=== PATIENT | female | born 1930 | race Caucasian/White ===

== ENCOUNTER 2017-09-06 22:36 | Emergency (ER) | payer MEDICARE, BC ==
[~2017-09-06] VITALS: Ht 149.9 cm; Wt 58.1 kg
[~2017-09-06 22:36] MED LIST: ALBU90OI6 INH; ASPI325 PO; ASPI81EC PO; AZATHIOPRINE; BENICAR; BUME2 PO; BUPR150ER PO; CALCAVITD PO; CARV25 PO; CLON.1 PO; COREG; CYCL100; DIAZIDE; DIPH25; DIPH50 PO; DOCU100 PO; DOXY100 PO; ESTR.1TPB; ESTR1; FAMO20 PO; FISH1000 PO; FLUT.05NI; FURO40 PO; HYDACE5 PO; HYDHCL10 PO; HYDHCL25; HYDPAM25; LEVFLO500 PO; LISHYD2012; LISHYD2012 PO; LISI20 PO; MAGNESIA; MAGOXI400 PO; MECL12.5 PO; MECL25 PO; METPRE4DP PO; NITR100CA PO; NORVASC; NYST100P TOP; POTCHL20ER PO; PRED10 PO; PRED20 PO; PREDNISONE 10 MG TAB; PROM25 PO; RISE35; RXPRED10; SIMV10 PO; TIOT18 IH; TRAM50 PO; [UNRECOGNIZED DRUG - OTHER] PO
[2017-09-06 23:29] LABS: BASOPHILS ABSOLUTE AUTO 0.02 K/mm3 (0.00-0.23); BASOPHILS PERCENT AUTO 0 % (0-2); EOSINOPHILS ABSOLUTE AUTO 0.26 K/mm3 (0.00-0.68); EOSINOPHILS PERCENT AUTO 3 % (0-6); Hematocrit 40.2 % (33.0-51.0); Hemoglobin 13.7 g/dL (11.5-16.0); IMMATURE GRAN ABSOLUTE AUTO 0.03 K/mm3 (0.00-0.10); IMMATURE GRAN PERCENT AUTO 0 % (0-1); LYMPHOCYTES ABSOLUTE AUTO 0.76 K/mm3 (0.84-5.20); LYMPHOCYTES PERCENT AUTO 10 % (21-46); MONOCYTES ABSOLUTE AUTO 0.82 K/mm3 (0.16-1.47); MONOCYTES PERCENT AUTO 10 % (4-13); Mean Corpuscular HGB 31.3 pg (26.0-34.0); Mean Corpuscular HGB Conc 34.1 g/dL (31.5-36.5); Mean Corpuscular Volume 92 fL (80-100); Mean Platelet Volume 9.3 fL (9.1-12.4); NEUTROPHILS ABSOLUTE AUTO 6.05 K/mm3 (1.96-9.15); NEUTROPHILS PERCENT AUTO 76 % (41-73); Platelet Count 216 K/mm3 (150-400); RDW Standard Deviation 47.8 fL (35.1-46.3); Red Blood Cell Count 4.38 M/mm3 (3.80-5.20); White Blood Cell Count 7.94 K/mm3 (4.00-11.30)
[2017-09-06 23:50] LABS: Alanine Aminotransfer (ALT/SGP 38 U/L (12-78); Albumin, Blood 3.9 g/dL (3.4-5.0); Albumin/Globulin Ratio 1.1 (0.8-1.8); Alk Phos 95 U/L (50-136); Anion Gap 7 mmol/L (6-16); Aspartate Aminotrans (AST/SGOT 31 U/L (12-37); Bilirubin, Total 0.5 mg/dL (0.1-1.0); Blood Urea Nitrogen 31 mg/dL (8-24); Bun/Creatinine Ratio 25.4 (12.0-20.0); CO2, Blood 26 mmol/L (21-32); Calcium, Blood 9.3 mg/dL (8.5-10.1); Chloride, Blood 101 mmol/L (98-108); Creatinine, Blood 1.22 mg/dL (0.40-1.00); Globulin, Blood 3.5 g/dL (2.2-4.0); Glomerular Filtration Rate 44 (60-); Glucose, Blood 108 mg/dL (70-99); Potassium, Blood 4.4 mmol/L (3.5-5.5); Sodium, Blood 134 mmol/L (136-145); Total Protein, Blood 7.4 g/dL (6.4-8.2); Troponin I <0.015 ng/mL (0.000-0.040)
== END 2017-09-07 02:49 | disposition home or self-care (01) ==
LOC: ER 22:36
PROVIDERS: Emergency Medicine
DX: K59.00 Constipation, unspecified (principal); Z88.8 Allergy status to other drugs, medicaments and biological substances; Z88.1 Allergy status to other antibiotic agents; Z91.013 Allergy to seafood; Z79.899 Other long term (current) drug therapy; Z79.52 Long term (current) use of systemic steroids; I10 Essential (primary) hypertension; J44.9 Chronic obstructive pulmonary disease, unspecified; Z87.891 Personal history of nicotine dependence
CPT/HCPCS: 36415; 51701; 74176; 80053; 83690; 84484; 85025; 93005; 93010; 96374; 96375; 99284; J1170; J2405

== ENCOUNTER → 2017-12-22 | Outpatient (CLI) | payer MEDICARE, BC | END | disposition home or self-care (01) | LOC: LAB SHORT 15:18 → PLD 15:18 | DX: D48.5 Neoplasm of uncertain behavior of skin (principal) | CPT/HCPCS: 88305 ==

== ENCOUNTER 2018-07-16 12:25 | Emergency (ER) | payer MEDICARE ==
[~2018-07-16] VITALS: Ht 149.9 cm; Wt 55.8 kg
[2018-07-16 13:11] LABS: BASOPHILS ABSOLUTE AUTO 0.02 K/mm3 (0.00-0.23); BASOPHILS PERCENT AUTO 0 % (0-2); EOSINOPHILS ABSOLUTE AUTO 0.07 K/mm3 (0.00-0.68); EOSINOPHILS PERCENT AUTO 1 % (0-6); Hematocrit 40.2 % (33.0-51.0); Hemoglobin 13.7 g/dL (11.5-16.0); IMMATURE GRAN ABSOLUTE AUTO 0.06 K/mm3 (0.00-0.10); IMMATURE GRAN PERCENT AUTO 1 % (0-1); LYMPHOCYTES ABSOLUTE AUTO 0.71 K/mm3 (0.84-5.20); LYMPHOCYTES PERCENT AUTO 6 % (21-46); MONOCYTES ABSOLUTE AUTO 1.19 K/mm3 (0.16-1.47); MONOCYTES PERCENT AUTO 11 % (4-13); Mean Corpuscular HGB 31.6 pg (26.0-34.0); Mean Corpuscular HGB Conc 34.1 g/dL (31.5-36.5); Mean Corpuscular Volume 93 fL (80-100); Mean Platelet Volume 9.6 fL (9.1-12.4); NEUTROPHILS ABSOLUTE AUTO 9.22 K/mm3 (1.96-9.15); NEUTROPHILS PERCENT AUTO 82 % (41-73); Platelet Count 217 K/mm3 (150-400); RDW Coefficient Variation 13.9 % (11.7-14.2); RDW Standard Deviation 47.3 fL (35.1-46.3); Red Blood Cell Count 4.34 M/mm3 (3.80-5.20); White Blood Cell Count 11.27 K/mm3 (4.00-11.30)
[2018-07-16 13:29] LABS: Albumin, Blood 3.6 g/dL (3.4-5.0); Albumin/Globulin Ratio 1.2 (0.8-1.8); Bilirubin, Total 0.8 mg/dL (0.1-1.0); Bun/Creatinine Ratio 18.7 (12.0-20.0); Calcium, Blood 9.2 mg/dL (8.5-10.1); Creatinine, Blood 1.98 mg/dL (0.40-1.00); Globulin, Blood 2.9 g/dL (2.2-4.0); Potassium, Blood 4.4 mmol/L (3.5-5.5); Total Protein, Blood 6.5 g/dL (6.4-8.2)
[2018-07-16 15:05] LABS: Source, Urine Clean Catch
[2018-07-16 15:19] LABS: Bilirubin, Urine Neg (Neg); Blood, Urine 1+ (Neg); Glucose Qualitative, Urine Neg (Neg); Ketones, Urine Neg (Neg); Leukocyte Esterase, Urine 2+ (Neg); Nitrite, Urine Neg (Neg); Protein, Urine 3+ (Neg); Urobilinogen, Urine NORM (Normal)
[2018-07-16 15:24] LABS: Appearance, Urine Hazy (Clear); Color, Urine Yellow (P-Yellow)
[2018-07-16 15:25] LABS: Squamous Epithelial Cells Mod /hpf (Few)
[2018-07-16 15:26] LABS: White Blood Cells, Urine 50-100 /hpf (0-5)
[2018-07-16 15:27] LABS: Amorphous Light ({null, 0-Heavy}); Bacteria Few /hpf
== END 2018-07-16 16:43 | disposition home or self-care (01) ==
LOC: ER 12:25
PROVIDERS: Physician Assistant
DX: N39.0 Urinary tract infection, site not specified (principal); E87.1 Hypo-osmolality and hyponatremia; I10 Essential (primary) hypertension; J44.9 Chronic obstructive pulmonary disease, unspecified; Z87.891 Personal history of nicotine dependence; Z79.899 Other long term (current) drug therapy; Z79.52 Long term (current) use of systemic steroids
CPT/HCPCS: 36415; 80053; 81001; 85025; 87077; 87086; 87186; 93005; 93010; 96360; 99284-25; J7030; P9612

== ENCOUNTER 2019-08-21 18:33 | Observation (INO) | payer MEDICARE ==
[~2019-08-21] VITALS: Ht 149.9 cm; Wt 52.5 kg
[~2019-08-21 18:33] MED LIST changes: -CARV25 PO; -FURO40 PO; -SIMV10 PO
[2019-08-21 19:26] LABS: BASOPHILS ABSOLUTE AUTO 0.02 K/mm3 (0.00-0.23); BASOPHILS PERCENT AUTO 0 % (0-2); EOSINOPHILS ABSOLUTE AUTO 0.11 K/mm3 (0.00-0.68); EOSINOPHILS PERCENT AUTO 2 % (0-6); Hematocrit 39.7 % (33.0-51.0); Hemoglobin 13.6 g/dL (11.5-16.0); IMMATURE GRAN ABSOLUTE AUTO 0.03 K/mm3 (0.00-0.10); IMMATURE GRAN PERCENT AUTO 1 % (0-1); LYMPHOCYTES ABSOLUTE AUTO 1.16 K/mm3 (0.84-5.20); LYMPHOCYTES PERCENT AUTO 19 % (21-46); MONOCYTES ABSOLUTE AUTO 0.76 K/mm3 (0.16-1.47); MONOCYTES PERCENT AUTO 12 % (4-13); Mean Corpuscular HGB 32.5 pg (26.0-34.0); Mean Corpuscular HGB Conc 34.3 g/dL (31.5-36.5); Mean Corpuscular Volume 95 fL (80-100); Mean Platelet Volume 9.6 fL (9.1-12.4); NEUTROPHILS PERCENT AUTO 66 % (41-73); Platelet Count 210 K/mm3 (150-400); RDW Coefficient Variation 13.4 % (11.7-14.2); RDW Standard Deviation 47.1 fL (35.1-46.3); Red Blood Cell Count 4.19 M/mm3 (3.80-5.20); White Blood Cell Count 6.18 K/mm3 (4.00-11.30)
[2019-08-21 19:45] LABS: Source, Urine Clean Catch
[2019-08-21 19:46] LABS: Albumin, Blood 3.9 g/dL (3.4-5.0); Albumin/Globulin Ratio 1.3 (0.8-1.8); Bilirubin, Total 0.5 mg/dL (0.1-1.0); Bun/Creatinine Ratio 24.7 (12.0-20.0); Calcium, Blood 9.5 mg/dL (8.5-10.1); Creatinine, Blood 1.82 mg/dL (0.40-1.00); Potassium, Blood 4.4 mmol/L (3.5-5.5); Total Protein, Blood 6.9 g/dL (6.4-8.2); Troponin I 0.362 ng/mL (0.000-0.040)
[2019-08-21 20:07] LABS: Bilirubin, Urine Neg (Neg); Blood, Urine 1+ (Neg); Glucose Qualitative, Urine Neg (Neg); Ketones, Urine Neg (Neg); Leukocyte Esterase, Urine 3+ (Neg); Nitrite, Urine Neg (Neg); Protein, Urine 1+ (Neg); Specific Gravity, Urine 1.015 (1.003-1.022); Urobilinogen, Urine NORM (Normal)
[2019-08-21 20:18] LABS: Appearance, Urine Hazy (Clear); Color, Urine Yellow (P-Yellow)
[2019-08-21 20:19] LABS: Bacteria Many /hpf; Red Blood Cells, Urine 0-2 /hpf (0-2); Squamous Epithelial Cells Not Seen /hpf (Few); White Blood Cells, Urine TNTC /hpf (0-5)
[2019-08-21] MEDS ORDERED: CARV25 PO (20:34)
[2019-08-21] MEDS ORDERED: LISI20 PO (20:35)
[2019-08-21] MEDS ORDERED: SIMV40 PO (20:35)
[2019-08-21] MEDS ORDERED: TIOT18 INH (20:37)
[2019-08-21] MEDS ORDERED: FURO20 PO (20:37)
[2019-08-21] MEDS ORDERED: BUPROPION XL150 M1 PO (20:38)
[2019-08-21] MEDS ORDERED: TRAZ50 PO (20:42)
[2019-08-21] MEDS ORDERED: LINZESS145 MCG PO (20:44)
[2019-08-21] MEDS ORDERED: CLON.1 PO (21:17)
[2019-08-21] MEDS ORDERED: MAGNESIUM250 MG PO (21:20)
--- NOTE | 2019-08-22 02:40 | NUR ---
PCU ADMIT PT BROUGHT TO PCU RM 09 FROM ER BY [facility] @ APPROX 2310. PT A&O X4, ABLE TO STAND AND AMBULATE TO PCU BED FROM [facility] W/ CARMEN[facility]. PT REPORTS USING FWW AT HOME ([employer]). BP TRENDING DOWN FROM BP IN ER. MONITOR SHOWS SR, HR 60's. SPO2 > 92% ON RA. PT REPORTS CHRONIC CONSTIPATION, BUT STATES HAVING BM THIS AM (08/21/19). 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 MRSA CLEARING NOT INITIATED D/T IV ABX GIVEN IN ER.
--- NOTE | 2019-08-22 05:49 | NUR ---
SHIFT SUMMARY PT CONTINUES TO BE A&O X4. BP ELEVATED, OTHERWISE VSS. NO EVENTS OR CHANGES OVERNIGHT. NO SYNCOPAL EPISODES THIS SHIFT. PT DENIES LIGHTHEADEDNESS/DIZZINESS W/ GETTING UP. WILL CONTINUE TO MONITOR AND PROVIDE CARE UNTIL REPORT OFF TO DAY SHIFT RN.
--- NOTE | 2019-08-22 08:06 | NUR ---
AM NOTE... ASSUMED CARE OF PT APROX 0700. PT IS A&Ox4 AND WAS ADMITTED FOR SYNCOPE. PT DENIES ANY LIGHT HEADED/DIZZINESS AT THIS TIME. PT IS HYPERTENSIVE AT 213/111, PT MEDICATED WITH PRN HYDRALAZINE PER EMAR. PT DENIES CHEST PAIN/PRESSURE N/V OR SOB AT THIS TIME. PT IS IN NSR IN THE 60'S-80'S PER CUSTOMER SERVICE CASHIER. L/S CLEAR T/O PT IS ON RA, RR 14-18 EVEN AND UNLABORED. BT PRESENT AND HYPOACTIVE. ABD IS SOFT AND NONTENDER TO PALP. PT WAS VERY EMOTIONAL AND CRYING THIS MORNING WHEN THIS RN ENTERED THE ROOM. PT STATED "I AM JUST FEELING SORRY FOR MYSELF." THIS RN PROVIDED THERAPEUTIC LISTENING AND TOUCH. WILL CONTINUE TO MONITOR.
--- NOTE | 2019-08-22 15:30 | NUR ---
Echocardiogram completed.
--- NOTE | 2019-08-22 17:07 | NUR ---
SHIFT SUMMARY... NO ACUTE NEGATIVE CHANGES NOTED THIS SHIFT. PT HAS BEEN HYPERTENSIVE MOST OF THE SHIFT AND HAS BEEN MEDICATED PER EMAR. PT'S OTHER VS STABLE. PT HAS BEEN C/O OF GETTING THE "SHIVERS" PT HAS BEEN AFEBRILE ALL SHIFT. PT HAS BEEN UP TO THE CHAIR FOR MEALS AND WALKING TO THE BATHROOM TO VOID. PT HAS HAD FAMILY AND VISITORS OFF AND ON T/O THE DAY. PT HAS DENIED ANY CHEST PAIN/PRESSURE N/V OR SOB, PT HAS ALSO DENIED ANY LIGHTHEADED/DIZZINESS THIS SHIFT. PT HAS BEEN TEARFUL AND EMOTIONAL OFF AND ON THIS SHIFT. CALL LIGHT IN REACH WILL CONTINUE TO MONITOR UNTIL REPORT IS GIVEN TO ONCOMING RN.
--- NOTE | 2019-08-23 00:20 | NUR ---
SC HEPARIN REFUSAL PT UNEASY W/ 3X/DAY SC HEPARIN ORDER. PT REFUSING DOSE AT THIS TIME, WANTING TO SPEAK W/ MD TO HAVE CHANGED. INFORMED PT WE CAN INQUIRE ABOUT CHANGE IN AM UPON MD ROUNDS.
[2019-08-23 05:17] LABS: Bun/Creatinine Ratio 20.6 (12.0-20.0); Calcium, Blood 8.3 mg/dL (8.5-10.1); Creatinine, Blood 1.36 mg/dL (0.40-1.00); Potassium, Blood 3.8 mmol/L (3.5-5.5)
--- NOTE | 2019-08-23 05:53 | NUR ---
SHIFT SUMMARY PT A&O X4. BP ELEVATED, OTHERWISE VSS. SPO2 > 92% ON RA. MONITOR SHOWS SR, HR 60's-90's. PT VOICING FRUSTRATION W/ ADMIT & THIS NURSE, STATING "I DIDN'T HAVE A CHOICE IN COMING TO THE HOSPITAL." PT UPSET ABOUT BEING BROUGHT TO HOSPITAL, BUT ALSO UNDERSTANDING OF NEED TO BE HERE. MULTIPLE DISCUSSIONS W/ PT ABOUT THE BENEFIT OF COMING IN AFTER HER 2 SYNCOPAL EPISODES PRIOR TO ADMIT. PT DENIES LIGHTHEADEDNESS/DIZZINESS W/ GETTING UP. PT SBA W/ FWW, UP IN ROOM THIS SHIFT W/ PT STATING "I'M GETTING SO STIFF FROM LAYING IN BED." PT W/ SCOLIOSIS & RED SPOT NOTED ON CURVATURE MID BACK. PT REPOSITIONING SELF IN BED, SLEEPING ON SIDE TO KEEP OFF BACK. NO EVENTS OVERNIGHT. WILL CONTINUE TO MONITOR AND PROVIDE CARE UNTIL REPORT OFF TO DAY SHIFT RN.
--- NOTE | 2019-08-23 13:49 | NUR ---
Met pt sitting up in a chair and is doing well , pt . is going home today anointed and offered prayers.
== END 2019-08-23 12:50 | disposition home health service (06) ==
LOC: ER 18:33 → PCU 18:34 → ER 23:03 → PCU 23:09 → ER 23:09 → PCU 23:09
PROVIDERS: Emergency Medicine; Hospitalist; ADMIT Internal Medicine
DX: R55 Syncope and collapse (principal); R94.39 Abnormal result of other cardiovascular function study; N39.0 Urinary tract infection, site not specified; I12.9 Hypertensive chronic kidney disease with stage 1 through stage 4 chronic kidney disease, or unspecified chronic kidney disease; N18.3 Chronic kidney disease, stage 3 (moderate); M62.84 Sarcopenia; H57.10 Ocular pain, unspecified eye; I16.0 Hypertensive urgency; R07.89 Other chest pain; G47.33 Obstructive sleep apnea (adult) (pediatric); N17.9 Acute kidney failure, unspecified; J44.9 Chronic obstructive pulmonary disease, unspecified; Z88.1 Allergy status to other antibiotic agents; Z88.8 Allergy status to other drugs, medicaments and biological substances; Z91.013 Allergy to seafood; Z66 Do not resuscitate; Z87.891 Personal history of nicotine dependence
CPT/HCPCS: 36415; 80048; 80053; 81001; 84484; 85025; 87077; 87086; 87186; 93005; 93010; 93306; 96361; 96365; 96375; 96376; 97116; 97162; 97165; 97535; 99285-25; G0378; J0360; J0696; J1644; J7030; J7050; J7120

== ENCOUNTER → 2019-08-30 | Outpatient (CLI) | payer MEDICARE ==
[~2019-08-30] MED LIST changes: +BUPROPION XL150 M1 PO; +CARV25 PO; +FURO20 PO; +LINZESS145 MCG PO; +MAGNESIUM250 MG PO; +SIMV40 PO; +TIOT18 INH; +TRAZ50 PO
== END | disposition home or self-care (01) ==
LOC: LAB SHORT 18:38 → LAB 18:38
DX: N39.0 Urinary tract infection, site not specified (principal)
CPT/HCPCS: 87077; 87086; 87186

== ENCOUNTER 2020-01-08 11:33 | Day surgery (SDC) | payer MEDICARE ==
[2020-01-16] MEDS ORDERED: PROAIR DIGIHAL90 MCG INH (06:17)
== END 2020-01-08 15:34 | disposition home or self-care (01) ==
LOC: ATC 11:33
DX: N39.0 Urinary tract infection, site not specified (principal); B96.5 Pseudomonas (aeruginosa) (mallei) (pseudomallei) as the cause of diseases classified elsewhere; K59.00 Constipation, unspecified; N95.2 Postmenopausal atrophic vaginitis; N39.3 Stress incontinence (female) (male); N39.41 Urge incontinence; Z88.1 Allergy status to other antibiotic agents; Z88.7 Allergy status to serum and vaccine; Z88.8 Allergy status to other drugs, medicaments and biological substances; R39.14 Feeling of incomplete bladder emptying; N36.42 Intrinsic sphincter deficiency (ISD); Z87.440 Personal history of urinary (tract) infections
CPT/HCPCS: 96365; J1335

== ENCOUNTER 2020-01-11 00:20 | Day surgery (SDC) | payer MEDICARE ==
[2020-01-16] MEDS ORDERED: PROAIR DIGIHAL90 MCG INH (06:17)
== END 2020-01-11 14:46 | disposition home or self-care (01) ==
LOC: ATC 00:20
DX: N39.0 Urinary tract infection, site not specified (principal); Z88.8 Allergy status to other drugs, medicaments and biological substances; Z88.5 Allergy status to narcotic agent; Z88.7 Allergy status to serum and vaccine; Z88.1 Allergy status to other antibiotic agents; Z79.899 Other long term (current) drug therapy
CPT/HCPCS: 96365; J1335

== ENCOUNTER 2020-01-12 08:26 | Day surgery (SDC) | payer MEDICARE ==
[2020-01-13] MEDS ORDERED: Catapres-Tts 21 EACH TOP (16:24)
[2020-01-16] MEDS ORDERED: PROAIR DIGIHAL90 MCG INH (06:17)
== END 2020-01-12 15:51 | disposition home or self-care (01) ==
LOC: ATC 08:26
DX: N39.0 Urinary tract infection, site not specified (principal); Z88.8 Allergy status to other drugs, medicaments and biological substances; Z88.5 Allergy status to narcotic agent; Z88.7 Allergy status to serum and vaccine; Z88.1 Allergy status to other antibiotic agents; Z79.899 Other long term (current) drug therapy
CPT/HCPCS: 96365; J1335

== ENCOUNTER 2020-01-13 00:46 | Day surgery (SDC) | payer MEDICARE ==
[2020-01-13] MEDS ORDERED: Catapres-Tts 21 EACH TOP (16:24)
[2020-01-16] MEDS ORDERED: PROAIR DIGIHAL90 MCG INH (06:17)
== END 2020-01-13 15:45 | disposition home or self-care (01) ==
LOC: ATC 00:46
DX: N39.0 Urinary tract infection, site not specified (principal); B96.5 Pseudomonas (aeruginosa) (mallei) (pseudomallei) as the cause of diseases classified elsewhere; Z88.1 Allergy status to other antibiotic agents; Z88.5 Allergy status to narcotic agent; Z88.7 Allergy status to serum and vaccine; Z88.8 Allergy status to other drugs, medicaments and biological substances
CPT/HCPCS: 96365; J1335

== ENCOUNTER 2020-01-14 00:14 | Day surgery (SDC) | payer MEDICARE ==
[~2020-01-14 00:14] MED LIST changes: +Catapres-Tts 21 EACH TOP
[2020-01-16] MEDS ORDERED: PROAIR DIGIHAL90 MCG INH (06:17)
== END 2020-01-14 15:40 | disposition home or self-care (01) ==
LOC: ATC 00:14
DX: N39.0 Urinary tract infection, site not specified (principal); B96.5 Pseudomonas (aeruginosa) (mallei) (pseudomallei) as the cause of diseases classified elsewhere; Z88.5 Allergy status to narcotic agent; Z88.1 Allergy status to other antibiotic agents; Z88.7 Allergy status to serum and vaccine; Z88.8 Allergy status to other drugs, medicaments and biological substances
CPT/HCPCS: 96365; J1335

== ENCOUNTER 2020-01-15 01:19 | Day surgery (SDC) | payer MEDICARE ==
[2020-01-16] MEDS ORDERED: PROAIR DIGIHAL90 MCG INH (06:17)
== END 2020-01-15 15:31 | disposition home or self-care (01) ==
LOC: ATC 01:19
DX: N39.0 Urinary tract infection, site not specified (principal); Z88.8 Allergy status to other drugs, medicaments and biological substances; Z88.7 Allergy status to serum and vaccine; B96.5 Pseudomonas (aeruginosa) (mallei) (pseudomallei) as the cause of diseases classified elsewhere
CPT/HCPCS: 96365; J1335

== ENCOUNTER 2020-02-05 17:01 | Emergency (ER) | payer MEDICARE ==
[~2020-02-05] VITALS: Ht 149.9 cm; Wt 48.5 kg
[~2020-02-05 17:01] MED LIST changes: +PROAIR DIGIHAL90 MCG INH
[2020-02-05 18:36] LABS: BASOPHILS ABSOLUTE AUTO 0.03 K/mm3 (0.00-0.23); BASOPHILS PERCENT AUTO 1 % (0-2); EOSINOPHILS ABSOLUTE AUTO 0.15 K/mm3 (0.00-0.68); EOSINOPHILS PERCENT AUTO 2 % (0-6); Hemoglobin 12.8 g/dL (11.5-16.0); IMMATURE GRAN ABSOLUTE AUTO 0.03 K/mm3 (0.00-0.10); IMMATURE GRAN PERCENT AUTO 1 % (0-1); LYMPHOCYTES ABSOLUTE AUTO 0.99 K/mm3 (0.84-5.20); LYMPHOCYTES PERCENT AUTO 15 % (21-46); MONOCYTES ABSOLUTE AUTO 0.69 K/mm3 (0.16-1.47); MONOCYTES PERCENT AUTO 11 % (4-13); Mean Corpuscular HGB 32.2 pg (26.0-34.0); Mean Corpuscular HGB Conc 33.7 g/dL (31.5-36.5); Mean Corpuscular Volume 96 fL (80-100); Mean Platelet Volume 9.3 fL (9.1-12.4); NEUTROPHILS ABSOLUTE AUTO 4.66 K/mm3 (1.96-9.15); NEUTROPHILS PERCENT AUTO 71 % (41-73); Platelet Count 223 K/mm3 (150-400); RDW Coefficient Variation 14.4 % (11.7-14.2); Red Blood Cell Count 3.97 M/mm3 (3.80-5.20); White Blood Cell Count 6.55 K/mm3 (4.00-11.30)
[2020-02-05 19:13] LABS: Bun/Creatinine Ratio 20.8 (12.0-20.0); Calcium, Blood 9.3 mg/dL (8.5-10.1); Creatinine, Blood 1.01 mg/dL (0.40-1.00); Troponin I 0.04 ng/mL (0.000-0.040)
== END 2020-02-05 22:40 | disposition home or self-care (01) ==
LOC: ER 17:01
PROVIDERS: Emergency Medicine
DX: I13.0 Hypertensive heart and chronic kidney disease with heart failure and stage 1 through stage 4 chronic kidney disease, or unspecified chronic kidney disease (principal); N18.9 Chronic kidney disease, unspecified; I50.9 Heart failure, unspecified; J44.9 Chronic obstructive pulmonary disease, unspecified; Z91.048 Other nonmedicinal substance allergy status; Z88.1 Allergy status to other antibiotic agents; Z88.8 Allergy status to other drugs, medicaments and biological substances; Z91.013 Allergy to seafood; Z79.899 Other long term (current) drug therapy; Z87.891 Personal history of nicotine dependence
CPT/HCPCS: 36415; 70450; 71045; 80048; 84484; 85025; 93005; 93010; 96374; 99284-25

== ENCOUNTER → 2020-02-19 | Outpatient (CLI) | payer MEDICARE | END | disposition home or self-care (01) | LOC: LAB SHORT 13:32 → LAB 13:32 | DX: N39.0 Urinary tract infection, site not specified (principal) | CPT/HCPCS: 87077; 87086; 87186 ==